=== PATIENT | female | born 1975 | race Caucasian/White ===

== ENCOUNTER → 2017-03-19 | Outpatient (CLI) | payer BC ==
[~2017-03-19] MED LIST: AMPI250C11 PO; DCS100C PO; DOCU100C37 PO; HYDR-3720 PO; IBP800T PO; IBUP-1780 PO; PREN1TAB14 PO; PREN1TAB86 PO
--- NOTE | 2017-03-19 18:23 | Diagnostic Imaging Report ---
Bilateral screening mammogram 2D views with tomosynthesis. The current study was also evaluated with a Computer Aided Detection (CAD) system. INDICATION: Screening. No current complaints stated on the questionnaire. COMPARISON: 08/01/2011. FINDINGS: The breasts are composed of extremely dense parenchyma which would decrease mammographic sensitivity. No mass, architectural distortion, or suspicious cluster of calcifications identified. Allowing for technique and positional differences, no suspicious change is seen. IMPRESSION: Dense breasts with no definite change. ACR BI-RADS Category 2: Benign findings. Result letter will be mailed to the patient. Note: At least 10% of breast cancer is not imaged by mammography. Dictated by: Dictated on workstation # [id number]
== END ==
LOC: RAD 09:05
PROVIDERS: ATTEND Obstetrics & Gynecology
DX: Z12.31 Encounter for screening mammogram for malignant neoplasm of breast (principal)
CPT/HCPCS: 77067

== ENCOUNTER → 2018-03-01 | Outpatient (CLI) | payer BC ==
--- NOTE | 2018-03-01 11:14 | Diagnostic Imaging Report ---
INDICATION: Foot pain COMPARISON: None available. TECHNIQUE: 3 radiographs of the left foot dated 03/01/2018. FINDINGS: No acute fracture or dislocation. No destructive osseous process. A 0.7 cm sclerotic focus is partially visualized within the anterior aspect of the distal tibial shaft. Lisfranc joint is well aligned. Minimal scattered degenerative changes, greatest involving the first MTP joint. IMPRESSION: No acute osseous abnormality with minimal degenerative changes. Small sclerotic focus within the distal tibia. This is not optimally visualized on this examination. Recommend dedicated radiographs of the left ankle for further evaluation. This may simply relate to a bone island, though additional sclerotic lesion should be considered. Dictated by: Dictated on workstation # [id number]
== END ==
LOC: RAD 10:24
PROVIDERS: ATTEND Family Medicine
DX: M89.9 Disorder of bone, unspecified (principal); M79.672 Pain in left foot
CPT/HCPCS: 73630

== ENCOUNTER → 2018-03-20 | Outpatient (CLI) | payer BC ==
--- NOTE | 2018-03-23 16:05 | Diagnostic Imaging Report ---
Indication: Screening. The current study was also evaluated with a Computer Aided Detection (CAD) system. 3D tomosynthesis was performed and reviewed. Comparison made with prior examination of 03/19/2017 and 08/19/2011 Findings: The fibroglandular tissue is heterogeneously dense bilaterally. There is no dominant mass spiculated lesion or suspicious calcifications identified. Skin, nipples and axilla are unremarkable. Impression: Category 1 negative. ACR BI-RADS Category 1: Negative. Result letter will be mailed to the patient. Note: At least 10% of breast cancer is not imaged by mammography. Dictated by: Dictated on workstation # [id number]
== END ==
LOC: RAD 08:03
PROVIDERS: ATTEND Obstetrics & Gynecology
DX: Z12.31 Encounter for screening mammogram for malignant neoplasm of breast (principal)
CPT/HCPCS: 77067

== ENCOUNTER → 2019-03-22 | Outpatient (CLI) | payer BC ==
--- NOTE | 2019-03-22 13:21 | Diagnostic Imaging Report ---
Indication: Routine screening. Comparison is made with prior mammogram from 03/20/2018 and 03/19/2017. 2-D and 3-D bilateral screening mammography was performed with CAD. Both breasts show marked parenchymal heterogeneity and increased density, limiting the sensitivity of mammography. The left breast is unremarkable. No suspicious microcalcifications are seen. There is a rounded circumscribed density in the far posterior right breast at nipple line on the MLO view. This is not definitely seen on the cc view. Axillae are unremarkable. Impression: BI-RADS zero Rounded masslike density in the far posterior right breast, only seen on the MLO view. Additional views are recommended. Ultrasound will likely be necessary as well, if this persists. ACR BI-RADS Category 0: Incomplete. (Needs additional imaging evaluation). Result letter will be mailed to the patient. Note: At least 10% of breast cancer is not imaged by mammography. Dictated by: Dictated on workstation # [id number]
== END ==
LOC: RAD 09:48
PROVIDERS: ATTEND Obstetrics & Gynecology
DX: Z12.31 Encounter for screening mammogram for malignant neoplasm of breast (principal); R92.8 Other abnormal and inconclusive findings on diagnostic imaging of breast
CPT/HCPCS: 77067

== ENCOUNTER → 2019-03-25 | Outpatient (CLI) | payer BC ==
--- NOTE | 2019-03-25 09:09 | Diagnostic Imaging Report ---
Indication: Right breast density. Patient presents for additional views. Correlation is made with recent screening study from 03/22/2019. Unilateral right 2-D and 3-D diagnostic mammography was performed including spot compression, MLO and conventional 90 degree lateral views. Right breast is heterogeneously dense. There is a circumscribed rounded density in the far posterior right breast near the chest wall. This projects slightly above the nipple line on ML view. This measures 12 mm in size. This has benign features. No other masses are seen. Impression: BI-RADS 0 Circumscribed density far posterior right breast, as described, likely a cyst. Further evaluation with ultrasound is recommended will be performed today. ACR BI-RADS Category 0: Incomplete. (Needs additional imaging evaluation). Result letter will be mailed to the patient. Note: At least 10% of breast cancer is not imaged by mammography. Dictated by: Dictated on workstation # [id number]
--- NOTE | 2019-03-25 15:05 | Diagnostic Imaging Report ---
INDICATION: Right breast density. COMPARISON: Correlation is made with the diagnostic mammogram from earlier this same day and a screening mammogram from 03/22/2019. FINDINGS: At the 2 o'clock location of the right breast 4 cm from the nipple, there is a hypoechoic solid-appearing mass near the chest wall. This measures 13 mm x 11 mm x 11 mm. This has a somewhat lobulated contour. No posterior acoustic shadowing is seen. No internal vascularity is present. No other masses are identified. The right axilla is unremarkable. IMPRESSION: Lobulated solid hypoechoic nodule at the 2 o'clock location of the right breast 4 cm from the nipple. This likely accounts for the density noted mammographically. While this could conceivably represent a fibroadenoma, this is not classic for a fibroadenoma. Therefore, tissue sampling is recommended. This would be amenable to ultrasound guided core biopsy. ACR BI-RADS Category 4: Suspicious abnormality. Dictated by: Dictated on workstation # [id number]
== END ==
LOC: RAD 08:28
PROVIDERS: ATTEND Obstetrics & Gynecology
DX: N63.11 Unspecified lump in the right breast, upper outer quadrant (principal)

== ENCOUNTER 2021-03-27 15:45 | Outpatient (RCR) | payer BC | END 2021-05-02 | disposition home or self-care (01) | DX: M54.2 Cervicalgia (principal); M54.6 Pain in thoracic spine ==

== ENCOUNTER 2022-08-14 06:05 | Outpatient (CLI) | payer BC ==
[~2022-08-14] VITALS: Ht 162.6 cm; Wt 62.3 kg
== END 2022-08-16 13:13 | disposition home or self-care (01) ==
LOC: PREOP 06:05
PROVIDERS: ATTEND Internal Medicine
DX: Z01.818 Encounter for other preprocedural examination (principal)

== ENCOUNTER 2022-08-23 08:56 | Day surgery (SDC) | payer BC ==
[~2022-08-23] VITALS: Ht 160.2 cm; Wt 62.3 kg
[2022-08-23] MEDS ORDERED: LACTATED RINGERS 1,000 ML IV STA (09:00)
--- NOTE | 2022-08-23 09:05 | Pre-Op Note & Conscious Sedat ---
Pre-Operative Progress Note Date H&P Reviewed: Aug 23, 2022 Time H&P Reviewed: 09:05 History & Physical: H&P Reviewed, Patient Examed, No changes noted Pre-Op Diagnosis: screening Conscious Sedation Pre-Proced ASA Score 2 For ASA 3 and 4: Consider anesthesia and medical clearance. Also, for patients with a history of failed moderate sedation consider anesthesia. Airway Lungs Heart ASA score ASA 1: a normal healthy patient ASA 2: a patient with a mild systemic disease (mid diabetes, controlled hypertension, obesity ASA 3: a patient with a severe systemic disease that limits activity (angina, COPD, prior Myocardial infarction) ASA 4: a patient with an incapacitating disease that is a constant threat to life (CHF, renal failure) ASA 5: a moribund patient not expected to survive 24 hrs. (ruptured aneurysm) ASA 6: a declared brain- patient whose organs are being harvested. For emergent operations, add the letter E after the classification Mallampati Classification Grade 1 Sedation Plan Analgesia, Amnesia, Plan communicated to team members, Discussed options with patient/fam, Discussed risks with patient/fam The patient is an appropriate candidate to undergo the planned procedure, sedation, and anesthesia. The patient immediately re-assessed prior to indication. MURIEL VAZQUEZ MD Aug 23, 2022 09:05
[2022-08-23 09:15] VITALS: BP 124/81
[2022-08-23] MEDS ORDERED: PROPOFOL INJECTION 50 ML IV ONE (09:39)
--- NOTE | 2022-08-23 10:11 | Anesthesia-General Post-Op ---
MAC Patient Condition Mental Status/LOC: Same as Preop Cardiovascular: Satisfactory Nausea/Vomiting: Absent Respiratory: Satisfactory Pain: Controlled Complications: Absent Post Op Complications Complications None Follow Up Care/Instructions Patient Instructions None needed. Anesthesiology Discharge Order Discharge Order Patient is doing well, no complaints, stable vital signs, no apparent adverse anesthesia problems. No complications reported per nursing. SAMI JAUREGUI CRNA Aug 23, 2022 10:11
--- NOTE | 2022-08-23 10:15 | Progress Note-Post Operative ---
Post-Procedure Note Physician (s)/Project Geophysicist (s) Physician MURIEL VAZQUEZ MD Pre-Procedure Diagnosis Pre-Procedure Diagnosis: screening Post-Procedure Diagnosis Post-operative diagnosis: Prior to undergoing colonoscopy digital rectal evaluation was performed. Anal sphincter tone was normal and the perianal reflexes intact. No abnormalities noted on digital inspection anal canal or distal rectal vault. The colonoscope was then inserted into the rectum and under direct visitation advanced the cecum. The cecum was identified by identification of the ileocecal valve and the cecal strap. Photographic documentation was obtained. Quality the prep was good. A careful inspection was made as the colonoscope was withdrawn. Findings: There were no evidence for internal or external hemorrhoids in the rectum sigmoid colon descending colon splenic flexure transverse colon hepatic flexure ascending colon and cecum were unremarkable. Assessment: 1. Normal colonoscopy to the cecum. Would advocate consideration for repeat screening colonoscopy in 10 years. CC: MD GEORGE Foreman MARK D MD Aug 23, 2022 10:15
[2022-08-23 10:16] VITALS: BP 97/56
[2022-08-23 10:21] VITALS: BP 111/62
[2022-08-23 10:26] VITALS: BP 101/55
[2022-08-23 10:30] VITALS: BP 122/75
[2022-08-23 10:50] VITALS: BP 122/75
== END 2022-08-23 10:55 | disposition home or self-care (01) ==
LOC: ENDO 08:56
PROVIDERS: ATTEND Internal Medicine
DX: Z12.11 Encounter for screening for malignant neoplasm of colon (principal); H93.13 Tinnitus, bilateral
CPT/HCPCS: 84703

== ENCOUNTER 2022-12-23 15:41 | Outpatient (RCR) | payer BC | END 2022-12-27 | disposition home or self-care (01) | PROVIDERS: ATTEND Physical Therapist | DX: M54.2 Cervicalgia (principal); M54.6 Pain in thoracic spine; R51.9 Headache, unspecified ==